=== PATIENT | male | born 2000 | race Two or more races ===

== ENCOUNTER 2024-05-21 10:44 | Inpatient (IN) | payer MEDICAID, OTHER ==
[~2024-05-21] VITALS: Ht 165.1 cm; Wt 82.0 kg
--- NOTE | 2024-05-21 11:03 | ED.PDOC ---
History of Present Illness HPI Comments 24-year-old male who comes in with chief complaint of a syncopal episode x2 today and one yesterday. According to the family, the patient was at his girlfriend's house yesterday and had a syncopal episode yesterday. The patient denies any vomiting but is having some nausea right now. The family states that the patient had another syncopal episode today at home and when he went to the urgent care he had another syncopal episode at the urgent care. When the paramedics arrived, the patient had a temperature of a 103. The patient had a similar episode approximately one year ago according to the family. There was no seizure activity noted. EN route, the patient had an Accu-Chek of 147 and was sinus tach at 113. He is complaining of the nausea and the sore throat as Chief Complaint: Syncope Time Seen by MD: 10:52 Reviewed Notes: Nurses Notes, Advanced Clinical Specialist Notes, Medications, Allergies (No allergies to medications) Allergies: Coded Allergies: NO KNOWN ALLERGIES (Unverified , 05/21/24) Information Source: Patient, Relative (Mother), Emergency Med Personnel Mode of Arrival: EMS Severity: Moderate Timing: Days Duration: Intermittent Prehospital treatment: Accucheck (147), Legal Executive, IVF, Other (Normal saline bolus) Associated signs and symptoms No associated vomiting or diarrhea Past Medical History PAST MEDICAL HISTORY: Denies Surgical History: Denies all surgeries Family History Family History: No family hx of Cancer, No family hx of DM, No family hx of Heart marian Social History Smoker: Non-Smoker Alcohol: Denies ETOH Use Drugs: Denies Drug Use Lives In: Home Constitutional: denies: chills, diaphoresis, fatigue, fever, malaise, sweats, weakness, others EENTM: denies: blurred vision, double vision, ear bleeding, ear discharge, ear drainage, ear pain, ear ringing, eye pain, eye redness, hearing loss, mouth pain, mouth swelling, nasal discharge, nose bleeding, nose congestion, nose pain, photophobia, tearing, throat pain, throat swelling, voice changes, others Respiratory: denies: cough, hemoptysis, orthopnea, SOB at rest, shortness of breath, SOB with excertion, stridor, wheezing, others Cardiovascular: reports: syncope; denies: chest pain, dizzy spells, diaphoresis, Dyspnea on exertion, edema, irregular heart beat, left arm pain, lightheadedness, palpitations, PND, others Gastrointestinal: reports: nausea; denies: abdomen distended, abdominal pain, blood streaked bowels, constipated, diarrhea, dysphagia, difficulty swallowing, hematemesis, melena, poor appetite, poor fluid intake, rectal bleeding, rectal pain, vomiting, others Genitourinary: denies: burning, dysuria, flank pain, frequency, hematuria, incontinence, penile discharge, penile sore, pain, testicle pain, testicle swelling, urgency, others Neurological: denies: dizziness, fainting, headache, left sided numbness, left sided weakness, numbness, paresthesia, pre-existing deficit, right sided numbness, right sided weakness, seizure, speech problems, tingling, tremors, weakness, others Musculoskeletal: denies: back pain, gout, joint pain, joint swelling, muscle pain, muscle stiffness, neck pain, others Integumetry: denies: bruises, change in color, change in hair/nails, dryness, laceration, lesions, lumps, rash, wounds, others Allergic/Immunocompromised: denies: Difficulty Healing, Frequent Infections, Hives, Itching, others Hematologic/Lymphatic: denies: anemia, blood clots, easy bleeding, easy bruising, swollen glands, others Endocrine: denies: excessive hunger, excessive sweating, excessive thirst, excessive urination, flushing, intolerance to cold, intolerance to heat, unexplained weight gain, unexplained weight loss, others Psychiatric: denies: anxiety, bipolar disorder, depression, hopeless, panic disorder, schizophrenia, sleepless, suicidal, others Physical Exam General Appearance: Mild Distress HEENT: Normal ENT Inspection, Pharynx Normal, TMs Normal Neck: Full Range of Motion, Non-Tender, Normal, Normal Inspection Respiratory: Chest Non-Tender, Lungs Clear, No Accessory Muscle Use, No Respiratory Distress, Normal Breath Sounds Cardiovascular: No Edema, No JVD, No Murmur, No Gallop, Normal Peripheral Pul ses, Regular Rate/Rhythm Breast Exam: Deferred Gastrointestinal: No Organomegaly, Non Tender, No Pulsatile Mass, Normal Bowel Sounds, Soft Genitalia: Deferred Pelvic: Deferred Rectal: Deferred Extremities: No calf tenderness, Normal capillary refill, Normal inspection, Normal range of motion, Non-tender, No pedal edema Musculoskeletal : Apperance: Normal Neurologic: Alert, health care technician II-XII nml as Tested, No Motor Deficits, Normal Affect, Normal Mood, No Sensory Deficits Cerebellar Function: Normal Reflexes: Normal Skin: Dry, Normal Color, Warm Lymphatic: No Adenopathy Was a procedure done? Was a procedure done?: No EKG EKG : Pulse Rate (adult): 107 [place]: Normal Cardiac Rhythm: ST ST: Nonsp Differential Dx Considerations may include: Syncope, generalized weakness, electrolyte imbalance, UTI X-Ray, Labs, Meds, VS Vital Signs Date Time Temp Pulse Resp B/P (MAP) Pulse Ox O2 Delivery O2 Flow Rate FiO2 05/21/24 14:00 100.6 119 20 129/78 (95) 98 100.6 05/21/24 13:21 101 18 99 Room Air* 0 21 05/21/24 11:58 99.1 101 25 117/69 (85) 99 99.1 05/21/24 11:07 107 05/21/24 10:50 107 05/21/24 10:44 101.6 98 16 100/61 (74) 100 Lab Test 05/21/24 14:21 05/21/24 13:24 05/21/24 11:21 Range/Units Troponin I High Sensitivity Pending 4 3 L </=54 ng/L White Blood Count 8.8 4.4-10.8 10^3/uL Red Blood Count 5.17 4.5-5.90 10^6/uL Hemoglobin 15.5 13.5-17.5 g/dL Hematocrit 45.0 41.0-53.0 % Mean Corpuscular Volume 87.2 80.0-100.0 fL Mean Corpuscular Hemoglobin 30.1 28.0-32.0 pg Mean Corpuscular Hemoglobin Concent 34.5 32.0-36.0 g/dL Red Cell Distribution Width 13.9 11.8-14.3 % Platelet Count 136 L 140-450 10^3/uL Mean Platelet Volume 8.8 6.9-10.8 fL Neutrophils (%) (Auto) 84.3 H 37.0-80.0 % Lymphocytes (%) (Auto) 5.5 L 10.0-50.0 % Monocytes (%) (Auto) 10.1 0.0-12.0 % Eosinophils (%) (Auto) 0.0 0.0-7.0 % Basophils (%) (Auto) 0.1 0.0-2.0 % Neutrophils # (Auto) 7.5 1.6-8.6 10 ^3/uL Lymphocytes # (Auto) 0.5 0.4-5.4 10 ^3/uL Monocytes # (Auto) 0.9 0-1.3 10 ^3/uL Eosinophils # (Auto) 0 0-0.8 10 ^3/uL Basophils # (Auto) 0 0-0.2 10 ^3/uL Nucleated Red Blood Cells 0.0 % Sodium Level 140 136-145 mmol/L Potassium Level 3.2 L 3.5-5.1 mmol/L Chloride Level 105 98-107 mmol/L Carbon Dioxide Level 25 20-31 mmol/L Anion Gap 10 5-15 Blood Urea Nitrogen 8 L 9-23 mg/dL Creatinine 1.03 0.700-1.30 mg/dL Glomerular Filtration Rate Calc 105 >90 mL/min BUN/Creatinine Ratio 7.8 L 10.0-20.0 Serum Glucose 116 H 74-106 mg/dL Calcium Level 9.8 8.7-10.4 mg/dL Current Medications Medications (Trade) Dose Ordered Sig/Chucky Route Start Time Stop Time Status Last Admin Sodium Chloride 500 ml @ 500 mls/hr Q1H ONCE IV 05/21/24 11:00 05/21/24 11:59 DC 05/21/24 11:52 PROCEDURE(s): HWOCT - HEAD WITHOUT CONTRAST IMPRESSION: 1. No evidence of acute intracranial abnormality. The urine test is pending The CBC is within normal limits The chemistry panel shows hypokalemia at 3.2 At this time, an IV Hep-Lock was established and the patient was given normal saline at 500 cc bolus The patient was being given potassium. The patient was being admitted to the hospitalist We feel that the patient it was a Cardiology as well as Neurology consult We have discussed the findings with the patient's mother and father as well as the patient and they are in agreement with the management Images Reviewed?: Images reviewed and evaluated by me Time of 1ST Reevaluation: 11:03 Reevaluation 1ST: Unchanged Patient Education/Counseling: Diagnosis, Treatment, Prognosis Family Education/Counseling: Diagnosis, Treatment, Prognosis Departure 1 Departure Time of Disposition: 14:55 Impression: Primary Impression: Episode of syncope Qualified Codes: R55 - Syncope and collapse Additional Impression: Hypokalemia Disposition: 09 ADMITTED INPATIENT Admit to: Tele Condition: Fair Critical Care Note Critical Care Time?: Yes (35 min-critical care time only) Stability Stability form required: Yes Unstable for transfer: Telemetry monitoring (Telemetry monitoring required), ED Physician Assesment (Clinical assesment) Heart Score Heart Score: Heart Score Response (Comments) Value History N/A 0 EKG N/A 0 Age N/A 0 Risk Factors N/A 0 Troponin N/A 0 Total 0 I personally scribed for XIN LARSON MD ([email or web address]) on 05/21/24 at 12:47. Electronically submitted by Win Almonte ([email or web address]). XIN LARSON MD May 21, 2024 11:03
[2024-05-21] MEDS: SODIUM CHLORIDE 0.9% 500 ML IV ONE (11:52)
--- NOTE | 2024-05-21 11:53 | DVH ---
EXAM: CT HEAD WITHOUT CONTRAST INDICATION: syncope TECHNIQUE: CT of the head without intravenous contrast. Coronal and sagittal reformatted images are submitted. Radiation Dose : 1. Head: CT Dose: CTDI volume is 65.11 mGy. Dose-length product is 1150.96 mGy*cm The dose indicators for CT are the volume Computed Tomography (CT) Dose Index (CTDIvol) and the Dose Length Product (DLP), and are measured in units of mGy and mGy-cm, respectively. These indicators are not patient dose, but values generated from the CT scanner acquisition factors. The report includes radiation exposure data for exposures received during this examination. All CT scans at this medical facility are performed using dose modulation techniques as appropriate to a performed exam including the following: Automated exposure control was utilized; adjustment of the MA and/or KV according to patient size; and use of iterative reconstruction technique. COMPARISON: None FINDINGS: There is no evidence of acute intracranial hemorrhage, extra-axial collection, mass effect, midline s hift, herniation or hydrocephalus. The ventricles, sulci and cisterns are age appropriate. The stringer-white differentiation is intact. The mastoid air cells are clear. Opacification of the bilateral ethmoid air cells. No depressed calvarial fracture. The surrounding soft tissues are unremarkable. IMPRESSION: 1. No evidence of acute intracranial abnormality.
[2024-05-21 12:18] LABS: Basophils # (auto) 0 10 ^3/uL (0-0.2); Basophils % (auto) 0.1 % (0.0-2.0); Eosinophils # (auto) 0 10 ^3/uL (0-0.8); Hemoglobin 15.5 g/dL (13.5-17.5); Lymphocytes # (auto) 0.5 10 ^3/uL (0.4-5.4); Lymphocytes % (auto) 5.5 % (10.0-50.0); Mean Corpuscular Hemoglobin 30.1 pg (28.0-32.0); Mean Corpuscular Hgb Conc. 34.5 g/dL (32.0-36.0); Mean Corpuscular Volume 87.2 fL (80.0-100.0); Monocytes # (auto) 0.9 10 ^3/uL (0-1.3); Monocytes % (auto) 10.1 % (0.0-12.0); Neutrophils # (auto) 7.5 10 ^3/uL (1.6-8.6); Neutrophils % (auto) 84.3 % (37.0-80.0); Platelet Count (auto) 136 10^3/uL (140-450); Red Blood Cells 5.17 10^6/uL (4.5-5.90); Red Cell Distribution Width 13.9 % (11.8-14.3); White Blood Cell 8.8 10^3/uL (4.4-10.8)
[2024-05-21 12:28] LABS: Chloride 105 mmol/L (98-107); Sodium 140 mmol/L (136-145)
[2024-05-21 12:29] LABS: Anion Gap 10 (5-15); Calcium 9.8 mg/dL (8.7-10.4); Carbon Dioxide 25 mmol/L (20-31)
[2024-05-21 12:34] LABS: BUN/Creatinine Ratio 7.8 (10.0-20.0)
[2024-05-21 12:37] LABS: Blood Urea Nitrogen 8 mg/dL (9-23); Glucose 116 mg/dL (74-106); Potassium 3.2 mmol/L (3.5-5.1)
[2024-05-21 13:21] VITALS: PULSE 101; RESP 18; O2SAT 99
[2024-05-21] MEDS: POTASSIUM CHL 20 Meq TABLET PO ONE (15:04)
[2024-05-21] MEDS: ACETAMINOPHEN 325 MG TAB PO ONE (16:07)
[2024-05-21] MEDS ORDERED: ONDANSETRON HCL 4 MG/2 ML VIAL IV PRN (17:00)
[2024-05-21] MEDS ORDERED: MORPHINE SULFATE INJ 2 MG/ml SYRG IV PRN ×2 (17:00)
[2024-05-21] MEDS ORDERED: DOCUSATE SOD 100 MG CAP PO PRN (17:00)
[2024-05-21] MEDS ORDERED: NITROGLYCERIN 0.4 MG SL TAB SL PRN (17:00)
[2024-05-21] MEDS: SODIUM CHLORIDE 0.9% 1,000 ML IV SCH (17:00)
[2024-05-21] MEDS ORDERED: HYDROcodone-ACET 5/325MG TAB PO PRN (17:00)
[2024-05-21 18:11] LABS: Opiate Scree,Urine Neg (NEGATIVE); Phencyclidine Screen, Urine Neg (NEGATIVE)
[2024-05-21] MEDS ORDERED: VANCOMYCIN PER PHARMACY 0 MG IV SCH (18:15)
[2024-05-21] MEDS ORDERED: AZITHROMYCIN 500MG/ 250ML 250 ML IV SCH (18:15)
--- NOTE | 2024-05-21 18:18 | DVHHP2 ---
History of Present Illness Reason for Visit: Passing out spell and febrile episode up to 103 for last few days History of Present Illness 24-year-old male with a no significant past medical history initially admitted to the hospital with flu-like symptoms including cough febrile episodes. Patient also complaining of multiple syncope episodes. Denies any chest pain denies any seizure-like activities. Denies any previous episode of similar kind. I did order influenza a and B as well as COVID-19. Patient does admit to have recent sick contacts but there is no chest x-ray yet. Past Medical History Nonsignificant. Past Surgical History: None ALCOHOL: none Drugs: None Review of Systems Review of Systems Review of system are negative besides mentioned above Allergies: Coded Allergies: NO KNOWN ALLERGIES (Unverified , 05/21/24) Medications Current Medications Medications Dose Ordered Sig/Chucky Route Start Time Stop Time Status Last Admin Dose Admin Sodium Chloride 1,000 ml @ 60 mls/hr [id number] IV 05/21/24 17:00 05/21/24 17:00 60 MLS/HR Acetaminophen/ Hydrocodone Bitart 1 tab Q4HP PRN PO 05/21/24 17:00 Ondansetron HCl 4 mg Q4HP PRN IV 05/21/24 17:00 Docusate Sodium 100 mg BIDPRN PRN PO 05/21/24 17:00 Enoxaparin Sodium 40 mg DAILY SC 05/22/24 10:00 Acetaminophen 650 mg Q6HP PRN PO 05/21/24 17:00 Morphine Sulfate 2 mg Q4HPRN PRN IV 05/21/24 17:00 Nitroglycerin 0.4 mg Q5MINP PRN SL 05/21/24 17:00 Morphine Sulfate 2 mg Q30M PRN IV 05/21/24 17:00 Vancomycin HCl 0 ml @ 0 mls/hr UD IV 05/21/24 18:15 UNV Ceftriaxone Sodium 50 ml @ 100 mls/hr DAILY@09 IV 05/21/24 18:15 UNV Azithromycin 250 ml @ 125 mls/hr DAILY IV 05/21/24 18:15 UNV Exam Vital Signs Vital Signs Date Time Temp Pulse Resp B/P (MAP) Pulse Ox O2 Delivery O2 Flow Rate FiO2 05/21/24 17:16 100.3 05/21/24 16:00 118 25 108/70 (83) 98 05/21/24 13:21 Room Air* 0 21 Exam HEENT pupils are reactive Neck is supple CV is S1-S2 regular rate and rhythm Respiratory diminished breath sounds bases GI positive bowel sound Extremity no edema BRICK [place]URNER HEAD no motor deficit Labs/Xrays Labs Test 05/21/24 17:43 05/21/24 14:21 05/21/24 11:21 Range/Units Troponin I High Sensitivity 4 </=54 ng/L White Blood Count 8.8 4.4-10.8 10^3/uL Red Blood Count 5.17 4.5-5.90 10^6/uL Hemoglobin 15.5 13.5-17.5 g/dL Hematocrit 45.0 41.0-53.0 % Mean Corpuscular Volume 87.2 80.0-100.0 fL Mean Corpuscular Hemoglobin 30.1 28.0-32.0 pg Mean Corpuscular Hemoglobin Concent 34.5 32.0-36.0 g/dL Red Cell Distribution Width 13.9 11.8-14.3 % Platelet Count 136 L 140-450 10^3/uL Mean Platelet Volume 8.8 6.9-10.8 fL Neutrophils (%) (Auto) 84.3 H 37.0-80.0 % Lymphocytes (%) (Auto) 5.5 L 10.0-50.0 % Monocytes (%) (Auto) 10.1 0.0-12.0 % Eosinophils (%) (Auto) 0.0 0.0-7.0 % Basophils (%) (Auto) 0.1 0.0-2.0 % Neutrophils # (Auto) 7.5 1.6-8.6 10 ^3/uL Lymphocytes # (Auto) 0.5 0.4-5.4 10 ^3/uL Monocytes # (Auto) 0.9 0-1.3 10 ^3/uL Eosinophils # (Auto) 0 0-0.8 10 ^3/uL Basophils # (Auto) 0 0-0.2 10 ^3/uL Nucleated Red Blood Cells 0.0 % Sodium Level 140 136-145 mmol/L Potassium Level 3.2 L 3.5-5.1 mmol/L Chloride Level 105 98-107 mmol/L Carbon Dioxide Level 25 20-31 mmol/L Anion Gap 10 5-15 Blood Urea Nitrogen 8 L 9-23 mg/dL Creatinine 1.03 0.700-1.30 mg/dL Glomerular Filtration Rate Calc 105 >90 mL/min BUN/Creatinine Ratio 7.8 L 10.0-20.0 Serum Glucose 116 H 74-106 mg/dL Calcium Level 9.8 8.7-10.4 mg/dL Assessment/Plan Assessment/Plan 24-year-old male with a no significant past medical history initially admitted to the hospital with a flu-like symptoms found to have 1. Flu-like symptoms rule out influenza, viral pneumonia, pneumonia 2. Recurrent syncope episodes. 3. Febrile episodes rule out bacteremia or any infection -admitted to telemetry, order COVID-19, ordered influenza a and B, chest x-ray-draw two sets of blood cultures, broad-spectrum IV antibiotics after all those tests are done, Infectious Disease consultation. -check orthostatic vitals Plan discussed with: Patient My Orders Orders - NITISH COLE MD Procedure Category Date Status Time Admit ADMIT 05/21/24 Transmitted 16:57 Code Status CODE 05/21/24 Transmitted 16:57 2 Gm Sodium Diet DIET 05/21/24 Transmitted Dinner Sodium Chloride 0.9% PHA 05/21/24 In Process 17:00 Hydrocodone-Acet PHA 05/21/24 In Process 5/325mg Tab ([place] 17:00 Ondansetron Hcl PHA 05/21/24 In Process (Zofran) 17:00 Docusate Sodium PHA 05/21/24 In Process Capsule (Colace 17:00 Enoxaparin Sodium PHA 05/22/24 In Process (Lovenox) 10:00 Condition: Fair JUDY 05/21/24 In Process 16:57 Acetaminophen Tablet PHA 05/21/24 In Process (Tylenol Tablet) 17:00 Morphine Sulfate PHA 05/21/24 In Process Injection 17:00 Nitroglycerin PHA 05/21/24 In Process Sublingual (Ntrostat 17:00 Morphine Sulfate PHA 05/21/24 In Process Injection 17:00 Stat Ekg For Chest JUDY 05/21/24 In Process Pain 16:57 Notify Of Changes JUDY 05/21/24 In Process From Base 16:57 Cocoa Room Operator For JUDY 05/21/24 In Process 24 Hours 16:57 Emergency Dysrhythmia JUDY 05/21/24 In Process Protocol 16:57 Rhythm Strips Once JUDY 05/21/24 In Process Every Shift 16:57 Oxygen By Nasal RT 05/21/24 Transmitted Cannula 16:57 * Cardiology Consult CONS 05/21/24 Transmitted 16:57 Echo 2d Mode Cardiac US 05/21/24 Logged DOP 16:57 Orthostatic Vital ORDERS 05/21/24 Transmitted Signs 16:57 Rapid Influenza A&B LAB 05/21/24 Logged 18:10 Covid19 Antigen [place] LAB 05/21/24 Logged Blood Culture JOSR 05/21/24 Logged 18:10 Vancomycin Per PHA 05/21/24 Logged Pharmacy 18:15 Ceftriaxone 1gm/50ml PHA 05/21/24 Logged D5w (Rocephin) 18:15 Azithromycin 500mg/ PHA 05/21/24 Logged 250ml (Zithromax 50 18:15 Date of Service: May 21, 2024 Billing Provider: NITISH COLE MD Common Visit Codes: NOT BILLABLE NITISH COLE MD May 21, 2024 18:18
[2024-05-21] MEDS: cefTRIAXone 1GM/50ML D5W 50 ML IV SCH (18:24)
[2024-05-21 18:50] LABS: Amphetamine Screen, Urine Neg (NEGATIVE); Barbiturate Scree,Urine Neg (NEGATIVE); Benzodiazephine Screen, Urine Neg (NEGATIVE); Cannabinoid Screen, Urine Neg (NEGATIVE); Cocaine Screen, Urine Neg (NEGATIVE)
--- NOTE | 2024-05-21 19:00 | ECG ---
[facility] Test Date: 2024-05-21 Test Time: 10:49:31 Pat Name: TEODORO ENRIQUE Department: ED Room: 0276T Gender: M Nonfarm Animal Caretaker: DAVIS : 2000 Requested By: XIN LARSON Order Number: [id number] Reading MD: Cody Barrow Measurements Intervals [place] Rate: 107 P: 63 AK: 138 QRS: 53 QRSD: 96 T: 31 QT: 329 QTc: 439 Interpretive Statements Sinus tachycardia RSR' in V1 or V2, probably normal variant Borderline T wave abnormalities Electronically Signed On 05-22-2024 9:22:52 PST by Cody Barrow Please click the below link to view image of tracing.
[2024-05-21] MEDS: VANCOMYCIN 1.5GM/300ML 300 ML IV ONE (19:02)
[2024-05-21] MEDS: AZITHROMYCIN 250 MG TAB PO SCH (19:24)
[2024-05-21 21:38] LABS: COVID19 ANTIGEN SOFIA FIA NEGATIVE (NEGATIVE)
[2024-05-21 21:44] LABS: Rapid Influenza B Negative (Negative)
[2024-05-21 21:49] LABS: Rapid Influenza A Positive (Negative)
[2024-05-21] MEDS: ACETAMINOPHEN 325 MG TAB PO PRN (22:29)
[2024-05-21 23:00] VITALS: BP_SYST 122; BP_SYST 126; BP_SYST 133; BP_DIAS 47; BP_DIAS 49; BP_DIAS 56; PULSE 113; PULSE 120; PULSE 134; RESP 17; TEMP 100.3; O2SAT 95; O2SAT 96
[2024-05-21 23:22] VITALS: BP 133/49; PULSE 120; RESP 18; TEMP 100.3; O2SAT 96
[2024-05-22] VITALS (11 sets, daily range): BP systolic 0–132; BP diastolic 49–69; PULSE 73–112; RESP 16–22; TEMP 98.1–102.7; O2SAT 96–99
[2024-05-22] MEDS: VANCOMYCIN 1GM/250ML KIT 250 ML IV SCH (01:17)
[2024-05-22 09:20] LABS: Calcium 9.8 mg/dL (8.7-10.4)
[2024-05-22 09:22] LABS: Chloride 104 mmol/L (98-107); Sodium 139 mmol/L (136-145)
[2024-05-22 09:25] LABS: BUN/Creatinine Ratio 6.7 (10.0-20.0); Glucose 96 mg/dL (74-106)
[2024-05-22 09:26] LABS: Blood Urea Nitrogen 6 mg/dL (9-23); Potassium 3.4 mmol/L (3.5-5.1)
[2024-05-22] MEDS: ENOXAPARIN SOD 40 MG/0.4 ML SYRINGE SC SCH (09:33)
--- NOTE | 2024-05-22 09:45 | DVH ---
CHEST RADIOGRAPH Indication: FEVER, COUGH, AND PHLEGM Technique: Frontal and lateral view of the chest was obtained Comparison: None FINDINGS: Lines and Tubes: None Lungs: Clear Pleura: No effusion. No pneumothorax. Cardiomediastinal contours: Unremarkable Bones: Unremarkable IMPRESSION: No evidence of acute disease.
[2024-05-22 10:47] LABS: Anion Gap 9 (5-15); Carbon Dioxide 26 mmol/L (20-31)
--- NOTE | 2024-05-22 15:46 | DVHSR ---
APPROVED REPORT EXAM: Two-dimensional and M-mode echocardiogram with Doppler and color Doppler. Blood Pressure: 118/69 mmHg INDICATION Syncope RISK FACTORS Height: 5'5", Weight: 150 DIMENSIONS LVDd5.2 (3.8-5.7cm)LA (2D)3.7 (1.9-4.0cm)Aortic Root3.2 (2.0-3.7cm) LVDs3.6 (2.5-4.0cm)LA (MM) (1.9-4.0cm)Aortic Cusp Exc2.0 (1.5-2.0cm) EF (%) 59.0 (55-70%)Rt. Atrium4.3 (1.9-4.0cm)Asc. Aorta2.6 cm IVSd0.8 (0.7-1.1cm)RV (D)4.1 (1.8-2.4cm) PWd0.8 (0.7-1.1cm) Mitral Valve MitralMitral Stenosis E wave0.88m/sMV Mean GR.mmHg E/A ratio0.02D MVAcm2 Aortic Valve Aortic ValveAortic Stenosis V11.35m/Gilbert Mean GR.4mmHg V21.34m/[place] Peak GR.7mmHg LVOT Diameter2.2 (1.8-2.4cm)Doppler AVA3.83cm2 Pulmonic Valve V21.01m/s LEFT VENTRICLE The left ventricular is of normal size and systolic function. Left ventricular wall thickness was no rmal. Ejection fraction is normal and then this estimate is 59%. There is no gross wall motion abno rmalities. There is no diastolic dysfunction. RIGHT VENTRICLE Normal left ventricular size and systolic function. ATRIA Both atria are of normal size. MITRAL VALVE The mitral valve is normal structure and function. PULMONIC VALVE Normal. TRICUSPID VALVE Normal structure and function. AORTIC VALVE The aortic valve is trileaflet in morphology. The volume is of normal structure and function. GREAT VESSELS The aortic root and proximal ascending aorta are of normal size. PERICARDIAL EFFUSION No pericardial effusion. Conclusion Normal biventricular size and systolic function. No evidence of diastolic dysfunction. No hemodynamically significant valvular disease. No pericardial effusion. PA systolic pressure isn't adequately estimated. No prior study for comparison.
--- NOTE | 2024-05-22 15:46 | DVHPN2 ---
Subjective PATIENT HAS STATED THAT HIS FLU-LIKE SYMPTOMS ARE MUCH BETTER. DENIES ANY LIGHTHEADEDNESS DIZZINESS. ORTHOSTATIC VITALS ARE NEGATIVE. 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 Medications Current Medications Medications Dose Ordered Sig/Chucky Route Start Time Stop Time Status Last Admin Dose Admin Sodium Chloride 1,000 ml @ 60 mls/hr [id number] IV 05/21/24 17:00 05/21/24 17:00 60 MLS/HR Acetaminophen/ Hydrocodone Bitart 1 tab Q4HP PRN PO 05/21/24 17:00 Ondansetron HCl 4 mg Q4HP PRN IV 05/21/24 17:00 Docusate Sodium 100 mg BIDPRN PRN PO 05/21/24 17:00 Enoxaparin Sodium 40 mg DAILY SC 05/22/24 10:00 05/22/24 09:33 40 MG Acetaminophen 650 mg Q6HP PRN PO 05/21/24 17:00 05/22/24 05:13 650 MG Morphine Sulfate 2 mg Q4HPRN PRN IV 05/21/24 17:00 Nitroglycerin 0.4 mg Q5MINP PRN SL 05/21/24 17:00 Morphine Sulfate 2 mg Q30M PRN IV 05/21/24 17:00 Vancomycin HCl 0 ml @ 0 mls/hr UD IV 05/21/24 18:15 Ceftriaxone Sodium 50 ml @ 100 mls/hr DAILY@09 IV 05/21/24 18:15 05/22/24 09:35 100 MLS/HR Azithromycin 250 ml @ 125 mls/hr DAILY IV 05/21/24 18:15 Cancel Azithromycin 500 mg DAILY PO 05/21/24 19:01 05/22/24 09:33 500 MG Vancomycin HCl 250 ml @ 250 mls/hr Q8H IV 05/22/24 02:00 05/22/24 12:11 250 MLS/HR Oseltamivir Phosphate 75 mg Q12HR PO 05/22/24 22:00 05/27/24 21:59 Laboratory Results Laboratory Tests 05/21/24 11:21 05/22/24 08:30 Chemistry Test 05/22/24 08:30 Calcium Level 9.8 mg/dL (8.7-10.4) Assessment/Plan Assessment/Plan 24-year-old male with a no significant past medical history initially admitted to the hospital with a flu-like symptoms found to have 1. Flu-like symptoms , COVID-19 RULED OUT INFLUENZA A IS POSITIVE 2. Recurrent syncope episodes , ORTHOSTATIC VITALS ARE NEGATIVE 3. Febrile episodes rule out bacteremia or any infection -START TAMIFLU , chest x-ray-draw two sets of blood cultures, broad-spectrum IV antibiotics after all those tests are done, Infectious Disease consultation. -check orthostatic vitals Plan discussed with: Patient, Other My Orders Orders - NITISH COLE MD Procedure Category Date Status Time Admit ADMIT 05/21/24 Transmitted 16:57 Code Status CODE 05/21/24 Transmitted 16:57 2 Gm Sodium Diet DIET 05/21/24 Transmitted Dinner Sodium Chloride 0.9% PHA 05/21/24 In Process 17:00 Hydrocodone-Acet PHA 05/21/24 In Process 5/325mg Tab ([place] 17:00 Ondansetron Hcl PHA 05/21/24 In Process (Zofran) 17:00 Docusate Sodium PHA 05/21/24 In Process Capsule (Colace 17:00 Enoxaparin Sodium PHA 05/22/24 In Process (Lovenox) 10:00 Condition: Fair JUDY 05/21/24 In Process 16:57 Acetaminophen Tablet PHA 05/21/24 In Process (Tylenol Tablet) 17:00 Morphine Sulfate PHA 05/21/24 In Process Injection 17:00 Nitroglycerin PHA 05/21/24 In Process Sublingual (Ntrostat 17:00 Morphine Sulfate PHA 05/21/24 In Process Injection 17:00 Stat Ekg For Chest JUDY 05/21/24 In Process Pain 16:57 Notify Of Changes JUDY 05/21/24 In Process From Base 16:57 Tour Director For JUDY 05/21/24 In Process 24 Hours 16:57 Emergency Dysrhythmia JUDY 05/21/24 In Process Protocol 16:57 Rhythm Strips Once JUDY 05/21/24 In Process Every Shift 16:57 Oxygen By Nasal RT 05/21/24 Transmitted Cannula 16:57 * Cardiology Consult CONS 05/21/24 Transmitted 16:57 Orthostatic Vital ORDERS 05/21/24 Transmitted Signs 16:57 Blood Culture JOSR 05/21/24 In Process 18:10 Vancomycin Per PHA 05/21/24 In Process Pharmacy 18:15 Ceftriaxone 1gm/50ml PHA 05/21/24 In Process D5w (Rocephin) 18:15 * Infectious [place]- CONS 05/21/24 Transmitted [place] 18:14 Azithromycin Tablet PHA 05/21/24 In Process (Zithromax Tablet) 19:01 Vancomycin,[place] LAB 05/22/24 Logged 17:00 Vancomycin Per JUDY 05/21/24 In Process Pharmacy Protoc 21:46 Vancomycin 1gm/250ml PHA 05/22/24 In Process Kit 02:00 * Dietary Consult CONS 05/22/24 Transmitted 00:13 Chest Two Views XY 05/22/24 Resulted Routine 08:08 Oseltamivir 75mg PHA 05/22/24 In Process Capsule (Tamiflu 75mg 22:00 Date of Service: May 22, 2024 Billing Provider: NITISH COLE MD Common Visit Codes: NOT BILLABLE NITISH COLE MD May 22, 2024 15:46
--- NOTE | 2024-05-22 19:58 | DVHINCON2 ---
Date of service: May 22, 2024 Referring Physician farrah Weston MD Reason for Consultation Influenza History of Present Illness This is a 24-year-old male with a no significant past medical history initially admitted to the hospital with flu-like symptoms including cough febrile episodes. Patient also complaining of multiple syncope episodes. Denies any previous episode of similar kind. Patient does admit to have recent sick contacts but there is no chest x-ray yet. Past Medical History None Past Surgical History None Family History None Social History None Allergies: Coded Allergies: NO KNOWN ALLERGIES (Unverified , 05/21/24) Home Meds No Active Prescriptions or Reported Meds Current Medications Current Medications Medications (Trade) Dose Ordered Sig/Chucky Route PRN Reason Start Time Stop Time Status Last Admin Enoxaparin Sodium (Lovenox) 40 mg DAILY SC 05/22/24 10:00 05/22/24 09:33 Vancomycin HCl 250 ml @ 250 mls/hr Q8H IV 05/22/24 02:00 05/22/24 18:14 DC 05/22/24 18:02 Oseltamivir Phosphate (Tamiflu 75MG Capsule) 75 mg Q12HR PO 05/22/24 22:00 05/27/24 21:59 Vancomycin HCl 250 ml @ 200 mls/hr Q8H IV 05/23/24 00:00 Review of Systems General: Fever HEENT: No Sinus pain, headache, vision changes or sore throat Respiratory: Cough Cardiovascular: No Chest pain, palpitations or leg edema Gastrointestinal: No Nausea, vomiting, diarrhea, abdominal pain Genitourinary: No Dysuria, urinary frequency, hematuria, pelvic pain Skin: No Rashes, ulcers, abscesses, redness or swelling Musculoskeletal: No Joint pain, muscle pain or swelling Neurologic: No Altered mental status, headaches or focal neurological deficits. Psychiatric: No Anxiety, depression or confusion Vital Signs Vital Signs Date Time Temp Pulse Resp B/P (MAP) Pulse Ox O2 Delivery O2 Flow Rate FiO2 05/22/24 18:01 99.4 05/22/24 17:00 97 16 127/68 (87) 96 118/49 (72) 132/57 (82) 05/22/24 08:10 Room Air* 0 21 Physical Exam HEENT pupils are reactive Neck is supple CV is S1-S2 regular rate and rhythm Respiratory diminished breath sounds bases GI positive bowel sound Extremity no edema ETL ANALYST no motor deficit Labs/Diagnostic Data Labs Test 05/22/24 16:56 05/22/24 08:30 05/21/24 18:30 05/21/24 17:43 Range/Units Vancomycin Level Trough 13.3 H 5-10 ug/mL Sodium Level 139 136-145 mmol/L Potassium Level 3.4 L 3.5-5.1 mmol/L Chloride Level 104 98-107 mmol/L Carbon Dioxide Level 26 20-31 mmol/L Anion Gap 9 5-15 Blood Urea Nitrogen 6 L 9-23 mg/dL Creatinine 0.89 0.700-1.30 mg/dL Glomerular Filtration Rate Calc 124 >90 mL/min BUN/Creatinine Ratio 6.7 L 10.0-20.0 Serum Glucose 96 74-106 mg/dL Calcium Level 9.8 8.7-10.4 mg/dL Influenza Type A Antigen Positive Negative Influenza Type B Antigen Negative Negative SARS-CoV-2 Antigen (Rapid) Negative NEGATIVE Urine Opiates Screen Neg NEGATIVE Urine Fentanyl Screen Neg NEGATIVE Urine Barbiturates Screen Neg NEGATIVE Urine Phencyclidine Screen Neg NEGATIVE Urine Amphetamines Screen Neg NEGATIVE Urine Benzodiazepines Screen Neg NEGATIVE Urine Cocaine Screen Neg NEGATIVE Urine Cannabinoids Screen Neg NEGATIVE Test 05/21/24 14:21 05/21/24 11:21 Range/Units Troponin I High Sensitivity 4 </=54 ng/L White Blood Count 8.8 4.4-10.8 10^3/uL Red Blood Count 5.17 4.5-5.90 10^6/uL Hemoglobin 15.5 13.5-17.5 g/dL Hematocrit 45.0 41.0-53.0 % Mean Corpuscular Volume 87.2 80.0-100.0 fL Mean Corpuscular Hemoglobin 30.1 28.0-32.0 pg Mean Corpuscular Hemoglobin Concent 34.5 32.0-36.0 g/dL Red Cell Distribution Width 13.9 11.8-14.3 % Platelet Count 136 L 140-450 10^3/uL Mean Platelet Volume 8.8 6.9-10.8 fL Neutrophils (%) (Auto) 84.3 H 37.0-80.0 % Lymphocytes (%) (Auto) 5.5 L 10.0-50.0 % Monocytes (%) (Auto) 10.1 0.0-12.0 % Eosinophils (%) (Auto) 0.0 0.0-7.0 % Basophils (%) (Auto) 0.1 0.0-2.0 % Neutrophils # (Auto) 7.5 1.6-8.6 10 ^3/uL Lymphocytes # (Auto) 0.5 0.4-5.4 10 ^3/uL Monocytes # (Auto) 0.9 0-1.3 10 ^3/uL Eosinophils # (Auto) 0 0-0.8 10 ^3/uL Basophils # (Auto) 0 0-0.2 10 ^3/uL Nucleated Red Blood Cells 0.0 % Microbiology Date/Time Source Procedure Growth Status 05/21/24 19:00 Blood Blood Culture - Preliminary NO GROWTH AFTER 24 HOURS OF INCUBATION. Resulted Assessment Assessment 24-year-old male with a no significant past medical history initially admitted to the hospital with a flu-like symptoms found to have 1. Flu-like symptoms 2. Recurrent syncope episodes. Recommendations 05/22 chest x-ray : evidence of no acute disease 05/21 : blood cultures : no growth of bacteria 05/21 : influenza A positive Covid : negative Stop Vancomycin , ceftriaxone Continue oseltamivir 75 mg BID for 5 days Gentle IV hydration recommend for tylenol Thank you for the consultation. Plan discussed with: JOSÉ Hunt MD May 22, 2024 19:58
[2024-05-22] MEDS: OSELTAMIVIR 75 MG CAP PO SCH (22:00)
--- NOTE | 2024-05-22 22:42 | DVHINCON2 ---
DATE OF CONSULTATION: 05/22/2024 REFERRING PHYSICIAN: Dr. Weston. CONSULTING PHYSICIAN: Dr. Perales. INDICATIONS: Syncope. HISTORY OF PRESENT ILLNESS: The patient is a 24-year-old male with no significant past medical history, was having flu-like symptoms recently over the past few days. The patient had an episode of brief loss of consciousness. At that time, the patient was noted to be hypotensive. The patient now admitted with diagnosis of influenza infection. The patient denies prior history of heart disease. PAST MEDICAL HISTORY: Unremarkable. MEDICATIONS AT HOME: None. PHYSICAL EXAMINATION: GENERAL: Alert and awake, in no form of cardiopulmonary distress. VITAL SIGNS: Blood pressure 119/67, pulse 91 per minute, saturation 99%. HEENT: No carotid bruits. No jugular venous distention. CHEST: Bilateral air entry. CARDIOVASCULAR: Precordial and carotid pulses palpable. Normal S1, S2. Regular rate and rhythm. No appreciable gallops or rubs. EXTREMITIES: No peripheral edema. DIAGNOSTIC DATA: CBC is normal. Sodium 139, potassium 3.4, creatinine 0.8. Troponin negative x3. ASSESSMENT: * Influenza ____. * Syncope, possibly secondary to orthostatic hypotension. * Hypokalemia. RECOMMENDATIONS: * Continue IV hydration. * Continue ____. * Supplement potassium. * We will obtain echo to exclude underlying structural heart disease. * If echo unremarkable, no further cardiac workup indicated. Thank you for allowing me to participate in the care of this patient. MD CARLOS Villalobos/BOGDAN/FLO TID: [id number] RECEIPT: [id number]
[2024-05-23] VITALS (9 sets, daily range): BP systolic 0–126; BP diastolic 38–80; PULSE 74–108; RESP 16–22; TEMP 98–99.4; O2SAT 97–99
[2024-05-23] MEDS ORDERED: VANCOMYCIN 1.25GM/250ML 250 ML IV SCH
[2024-05-23] MEDS ORDERED: TAMIFLU PO (14:31)
[2024-05-23] MEDS: SODIUM CHLORIDE 0.9% 1,000 ML IV SCH (15:43)
--- NOTE | 2024-05-23 17:01 | DVHPN2 ---
Subjective PATIENT HAS STATED THAT HIS FLU-LIKE SYMPTOMS ARE MUCH BETTER. Patient came back positive for orthostatic vital signs. Reviewed: Care Plan Changes from previous H/P or p: Changes (Patient came back positive for orthostatic hypotension.) Objective Vitals Vital Signs Date Time Temp Pulse Resp B/P (MAP) Pulse Ox O2 Delivery O2 Flow Rate FiO2 05/23/24 16:37 98.3 75 17 126/58 (80) 99 98.3 05/23/24 08:20 Room Air* 0 21 Intake/Output Intake and Output 05/23/24 07:00 Intake Total 2135 ml Output Total 300 ml Balance 1835 ml Intake Oral 1585 ml IV Total 550 ml Output Urine Total 300 ml Stool Total 0 ml # Voids 3 Exam HEENT PUPILS ARE REACTIVE NECK IS SUPPLE CV IS S1-S2 REGULAR RATE AND RHYTHM RESPIRATORY ARE CLEAR GI POSITIVE BOWEL SOUND EXTREMITY NO 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 Medications Current Medications Medications Dose Ordered Sig/Chucky Route Start Time Stop Time Status Last Admin Dose Admin Acetaminophen/ Hydrocodone Bitart 1 tab Q4HP PRN PO 05/21/24 17:00 Ondansetron HCl 4 mg Q4HP PRN IV 05/21/24 17:00 Docusate Sodium 100 mg BIDPRN PRN PO 05/21/24 17:00 Enoxaparin Sodium 40 mg DAILY SC 05/22/24 10:00 05/23/24 10:16 40 MG Acetaminophen 650 mg Q6HP PRN PO 05/21/24 17:00 05/23/24 10:30 650 MG Morphine Sulfate 2 mg Q4HPRN PRN IV 05/21/24 17:00 Nitroglycerin 0.4 mg Q5MINP PRN SL 05/21/24 17:00 Morphine Sulfate 2 mg Q30M PRN IV 05/21/24 17:00 Azithromycin 250 ml @ 125 mls/hr DAILY IV 05/21/24 18:15 Cancel Azithromycin 500 mg DAILY PO 05/21/24 19:01 05/23/24 10:25 500 MG Oseltamivir Phosphate 75 mg Q12HR PO 05/22/24 22:00 05/27/24 21:59 05/23/24 10:25 75 MG Midodrine 5 mg BID PO 05/23/24 22:00 Sodium Chloride 1,000 ml @ 150 mls/hr Q6H40M IV 05/23/24 15:15 05/23/24 15:43 150 MLS/HR Laboratory Results Laboratory Tests 05/21/24 11:21 05/22/24 08:30 Microbiology Microbiology Date/Time Source Procedure Growth Status 05/21/24 19:00 Blood Blood Culture - Preliminary NO GROWTH AFTER 24 HOURS OF INCUBATION. Resulted Assessment/Plan Assessment/Plan 24-year-old male with a no significant past medical history initially admitted to the hospital with a flu-like symptoms found to have 1. Flu-like symptoms , COVID-19 RULED OUT INFLUENZA A IS POSITIVE oncology on Tamiflu 2. Recurrent syncope episodes , ORTHOSTATIC VITALS ARE positive 3. Febrile episodes ruled out bacteremia or any infection -continue Tamiflu, blood cultures are negative -patient is orthostatic vital signs are positive, discussed case with Dr. Turner on the phone who recommended to start low-dose of midodrine. IV fluids -sutures service consultation for thigh-high Joshua hose. Patient recommended not to get up without any help and call bedside RN and call light button before he gets up. -patient is family updated regarding current plan of care both mom and dad but at bedside med vital signs were checked and he was orthostatic vital signs positive Nancy of later dizziness but did not pass out. Plan discussed with: Patient, Other (Patient's mom and dad at bedside.) My Orders Orders - NITISH COLE MD Procedure Category Date Status Time Potassium LAB 05/23/24 In Process 14:31 * Cover Machine Operator CONS 05/23/24 Transmitted Consult Basic Metabolic Panel LAB 05/24/24 Verified 06:00 Magnesium LAB 05/24/24 Verified 06:00 Midodrine Tablet PHA 05/23/24 In Process (Proamatine Tablet) 22:00 Orthostatic Vital ORDERS 05/23/24 Transmitted Signs 14:44 Sodium Chloride 0.9% PHA 05/23/24 In Process 15:15 Date of Service: May 23, 2024 Billing Provider: NITISH COLE MD Common Visit Codes: NOT BILLABLE NITISH COLE MD May 23, 2024 17:01
--- NOTE | 2024-05-23 20:18 | DVHPN2 ---
Progress Note - Dictate Date Seen: May 23, 2024 Medical Necessity Reason Pt with a Central, PICC or Fol: No Subjective Patient has stated that his flu-like symptoms are much better. Patient came back positive for orthostatic vital signs. vital signs Vital Sign Date Time Temp Pulse Resp B/P (MAP) Pulse Ox O2 Delivery O2 Flow Rate FiO2 05/23/24 16:37 98.3 75 17 126/58 (80) 99 98.3 05/23/24 08:20 Room Air* 0 21 Total Intake and Output 05/22/24 05/22/24 05/23/24 15:00 23:00 07:00 Intake Total 600 ml 740 ml 795 ml Output Total 0 ml 300 ml Balance 600 ml 740 ml 495 ml medications Current Medications Medications Dose Ordered Sig/Chucky Route Start Time Stop Time Status Last Admin Dose Admin Acetaminophen/ Hydrocodone Bitart 1 tab Q4HP PRN PO 05/21/24 17:00 Ondansetron HCl 4 mg Q4HP PRN IV 05/21/24 17:00 Docusate Sodium 100 mg BIDPRN PRN PO 05/21/24 17:00 Enoxaparin Sodium 40 mg DAILY SC 05/22/24 10:00 05/23/24 10:16 40 MG Acetaminophen 650 mg Q6HP PRN PO 05/21/24 17:00 05/23/24 10:30 650 MG Morphine Sulfate 2 mg Q4HPRN PRN IV 05/21/24 17:00 Nitroglycerin 0.4 mg Q5MINP PRN SL 05/21/24 17:00 Morphine Sulfate 2 mg Q30M PRN IV 05/21/24 17:00 Azithromycin 250 ml @ 125 mls/hr DAILY IV 05/21/24 18:15 Cancel Azithromycin 500 mg DAILY PO 05/21/24 19:01 05/23/24 10:25 500 MG Oseltamivir Phosphate 75 mg Q12HR PO 05/22/24 22:00 05/27/24 21:59 05/23/24 10:25 75 MG Midodrine 5 mg BID PO 05/23/24 22:00 Sodium Chloride 1,000 ml @ 150 mls/hr Q6H40M IV 05/23/24 15:15 05/23/24 15:43 150 MLS/HR objective HEENT pupils are reactive Neck is supple CV is S1-S2 regular rate and rhythm Respiratory diminished breath sounds bases GI positive bowel sound Extremity no edema AUTOMATION QA LEAD no motor deficit laboratory and microbiology Laboratory Tests 05/23/24 16:20 05/22/24 08:30 05/21/24 11:21 Test 05/22/24 08:30 Range/Units Serum Glucose 96 74-106 mg/dL Assessment/Plan Assessment 24-year-old male with a no significant past medical history initially admitted to the hospital with a flu-like symptoms found to have 1. Flu-like symptoms 2. Recurrent syncope episodes. Recommendations 05/21 : influenza A positive Covid : negative Stop Vancomycin , ceftriaxone Continue oseltamivir 75 mg BID for 5 days Gentle IV hydration recommend for tylenol syncopal episode : defer to primary team Thank you for the consultation. Dietary Evaluation Review Comments: Encourage and monitor PO intake to meet 75% of his needs Expected Outcomes/Goals: avoid weight loss. Plan discussed with: Other JOSÉ SIMMONS MD May 23, 2024 20:18
[2024-05-23] MEDS: MIDODRINE HCL 10 MG TAB PO SCH (23:12)
[2024-05-24] VITALS (9 sets, daily range): BP systolic 0–121; BP diastolic 55–70; PULSE 60–93; RESP 16–22; TEMP 98.1–99.7; O2SAT 87–99
[2024-05-24 09:00] LABS: Chloride 106 mmol/L (98-107); Potassium 3.7 mmol/L (3.5-5.1); Sodium 141 mmol/L (136-145)
[2024-05-24 09:02] LABS: Anion Gap 8 (5-15); Calcium 9.6 mg/dL (8.7-10.4); Carbon Dioxide 27 mmol/L (20-31)
[2024-05-24 09:06] LABS: Glucose 82 mg/dL (74-106)
[2024-05-24 09:07] LABS: BUN/Creatinine Ratio 9.5 (10.0-20.0); Magnesium 2.1 mg/dL (1.6-2.6)
[2024-05-24 09:11] LABS: Blood Urea Nitrogen 7 mg/dL (9-23)
--- NOTE | 2024-05-24 16:49 | DVHPN2 ---
Subjective Patient has orthostatic hypotension is better as compared to yesterday as per recent vital signs. Patient's mom has a concern about the diet. Dietary consultation will be requested. Patient stated that he is feeling much better. We will keep the patient one more day. Patient already has thigh-high Joshua hose. Reviewed: Care Plan Changes from previous H/P or p: Changes (Orthostatic vitals are much better as compared to yesterday.) Objective Vitals Vital Signs Date Time Temp Pulse Resp B/P (MAP) Pulse Ox O2 Delivery O2 Flow Rate FiO2 05/24/24 13:00 98.1 60 17 113/67 (82) 99 98.1 114/61 (78) 103/55 (71) 05/24/24 08:25 Room Air* 0 21 Intake/Output Intake and Output 05/24/24 07:00 Intake Total 4782 ml Output Total 1050 ml Balance 3732 ml Intake Oral 3632 ml IV Total 1150 ml Output Urine Total 1050 ml # Voids 2 # Bowel Movements 1 Medications Current Medications Medications Dose Ordered Sig/Chucky Route Start Time Stop Time Status Last Admin Dose Admin Acetaminophen/ Hydrocodone Bitart 1 tab Q4HP PRN PO 05/21/24 17:00 Ondansetron HCl 4 mg Q4HP PRN IV 05/21/24 17:00 Docusate Sodium 100 mg BIDPRN PRN PO 05/21/24 17:00 Enoxaparin Sodium 40 mg DAILY SC 05/22/24 10:00 05/24/24 10:32 40 MG Acetaminophen 650 mg Q6HP PRN PO 05/21/24 17:00 05/24/24 10:49 650 MG Morphine Sulfate 2 mg Q4HPRN PRN IV 05/21/24 17:00 Nitroglycerin 0.4 mg Q5MINP PRN SL 05/21/24 17:00 Morphine Sulfate 2 mg Q30M PRN IV 05/21/24 17:00 Azithromycin 250 ml @ 125 mls/hr DAILY IV 05/21/24 18:15 Cancel Azithromycin 500 mg DAILY PO 05/21/24 19:01 05/24/24 10:32 500 MG Oseltamivir Phosphate 75 mg Q12HR PO 05/22/24 22:00 05/27/24 21:59 05/24/24 10:32 75 MG Midodrine 5 mg BID PO 05/23/24 22:00 05/24/24 10:32 5 MG Sodium Chloride 1,000 ml @ 150 mls/hr Q6H40M IV 05/23/24 15:15 05/24/24 14:47 150 MLS/HR Laboratory Results Laboratory Tests 05/21/24 11:21 05/24/24 08:03 Chemistry Test 05/24/24 08:03 Calcium Level 9.6 mg/dL (8.7-10.4) Magnesium Level 2.1 mg/dL (1.6-2.6) Microbiology Microbiology Date/Time Source Procedure Growth Status 05/21/24 19:00 Blood Blood Culture - Preliminary NO GROWTH AFTER 48 HOURS OF INCUBATION. Resulted Assessment/Plan Assessment/Plan 24-year-old male with a no significant past medical history initially admitted to the hospital with a flu-like symptoms found to have 1. Flu-like symptoms , COVID-19 RULED OUT INFLUENZA A IS POSITIVE currently on Tamiflu 2. Recurrent syncope episodes , ORTHOSTATIC VITALS ARE positive but getting better 3. Febrile episodes ruled out bacteremia -continue Tamiflu, blood cultures are negative -patient is orthostatic vital signs are positive, discussed case with Dr. Perales yesterday on the phone who recommended to start low-dose of midodrine. IV fluids -thigh-high Joshua hose. Patient recommended not to get up without any help and call bedside RN and call light button before he gets up. -discharge plan in next 24 hours if patient continues to improve. Patient's and patient's mom was updated at bedside regarding current plan of care they both agree to the same plan. -dietary consultation. Plan discussed with: Patient, Other (Patient's mom at bedside.) Date of Service: May 24, 2024 Billing Provider: NITISH COLE MD Common Visit Codes: NOT BILLABLE NITISH COLE MD May 24, 2024 16:49
--- NOTE | 2024-05-24 19:53 | DVHPN2 ---
Progress Note - Dictate Date Seen: May 24, 2024 Medical Necessity Reason Pt with a Central, PICC or Fol: No Subjective Patient has stated that his flu-like symptoms are much better. Patient came back positive for orthostatic vital signs. Patient already has thigh-high Kieran hose. vital signs Vital Sign Date Time Temp Pulse Resp B/P (MAP) Pulse Ox O2 Delivery O2 Flow Rate FiO2 05/24/24 17:00 98.1 69 17 121/68 (85) 98 98.1 05/24/24 08:25 Room Air* 0 21 Total Intake and Output 05/23/24 05/23/24 05/24/24 15:00 23:00 07:00 Intake Total 3532 ml 1250 ml Output Total 1050 ml Balance 3532 ml 200 ml medications Current Medications Medications Dose Ordered Sig/Chucky Route Start Time Stop Time Status Last Admin Dose Admin Acetaminophen/ Hydrocodone Bitart 1 tab Q4HP PRN PO 05/21/24 17:00 Ondansetron HCl 4 mg Q4HP PRN IV 05/21/24 17:00 Docusate Sodium 100 mg BIDPRN PRN PO 05/21/24 17:00 Enoxaparin Sodium 40 mg DAILY SC 05/22/24 10:00 05/24/24 10:32 40 MG Acetaminophen 650 mg Q6HP PRN PO 05/21/24 17:00 05/24/24 10:49 650 MG Morphine Sulfate 2 mg Q4HPRN PRN IV 05/21/24 17:00 Nitroglycerin 0.4 mg Q5MINP PRN SL 05/21/24 17:00 Morphine Sulfate 2 mg Q30M PRN IV 05/21/24 17:00 Azithromycin 250 ml @ 125 mls/hr DAILY IV 05/21/24 18:15 Cancel Azithromycin 500 mg DAILY PO 05/21/24 19:01 05/24/24 10:32 500 MG Oseltamivir Phosphate 75 mg Q12HR PO 05/22/24 22:00 05/27/24 21:59 05/24/24 10:32 75 MG Midodrine 5 mg BID PO 05/23/24 22:00 05/24/24 10:32 5 MG Sodium Chloride 1,000 ml @ 150 mls/hr Q6H40M IV 05/23/24 15:15 05/24/24 14:47 150 MLS/HR objective HEENT pupils are reactive Neck is supple CV is S1-S2 regular rate and rhythm Respiratory diminished breath sounds bases GI positive bowel sound Extremity no edema 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 Flu-like symptoms 2. Recurrent syncope episodes. Recommendations 05/21 : influenza A positive Covid : negative dcd Vancomycin , ceftriaxone Continue oseltamivir 75 mg BID for 5 days Gentle IV hydration recommend for tylenol Thigh high kieran hose for orhtostatic hypotension: managed by primary team Thank you for the consultation. Dietary Evaluation Review Comments: Encourage and monitor PO intake to meet 75% of his needs Expected Outcomes/Goals: avoid weight loss. Plan discussed with: Other JOSÉ SIMMONS MD May 24, 2024 19:53
[2024-05-25 01:00] VITALS: BP 105/60; PULSE 74; RESP 19; TEMP 98.2; O2SAT 100
[2024-05-25 05:00] VITALS: BP 110/65; PULSE 58; RESP 20; TEMP 98.4; O2SAT 98
[2024-05-25 07:43] LABS: Basophils # (auto) 0 10 ^3/uL (0-0.2); Basophils % (auto) 0.2 % (0.0-2.0); Eosinophils # (auto) 0.1 10 ^3/uL (0-0.8); Eosinophils % (auto) 1.7 % (0.0-7.0); Hematocrit 37.6 % (41.0-53.0); Hemoglobin 13.2 g/dL (13.5-17.5); Lymphocytes # (auto) 1.6 10 ^3/uL (0.4-5.4); Lymphocytes % (auto) 32.2 % (10.0-50.0); Mean Corpuscular Hemoglobin 30.6 pg (28.0-32.0); Mean Corpuscular Volume 87.3 fL (80.0-100.0); Monocytes # (auto) 0.6 10 ^3/uL (0-1.3); Monocytes % (auto) 13.1 % (0.0-12.0); Neutrophils # (auto) 2.6 10 ^3/uL (1.6-8.6); Neutrophils % (auto) 52.8 % (37.0-80.0); Platelet Count (auto) 198 10^3/uL (140-450); Red Cell Distribution Width 13.1 % (11.8-14.3); White Blood Cell 4.8 10^3/uL (4.4-10.8)
[2024-05-25 08:00] VITALS: PULSE 100; PULSE 83; RESP 17; O2SAT 98
[2024-05-25 08:08] LABS: Anion Gap 9 (5-15); Calcium 9.7 mg/dL (8.7-10.4); Carbon Dioxide 25 mmol/L (20-31); Chloride 107 mmol/L (98-107); Potassium 3.7 mmol/L (3.5-5.1); Sodium 141 mmol/L (136-145)
[2024-05-25 08:14] LABS: BUN/Creatinine Ratio 6.9 (10.0-20.0); Glucose 91 mg/dL (74-106)
[2024-05-25 08:15] LABS: Blood Urea Nitrogen 5 mg/dL (9-23)
[2024-05-25 08:16] LABS: Phosphorus 2.7 mg/dL (2.4-5.1)
[2024-05-25 09:00] VITALS: BP 112/54; PULSE 55; RESP 16; TEMP 98.8; O2SAT 96
[2024-05-25 13:00] VITALS: BP 116/72; PULSE 66; RESP 16; TEMP 96.8; O2SAT 98
[2024-05-25 15:25] VITALS: BP_SYST 113; BP_SYST 116; BP_SYST 120; BP_DIAS 65; BP_DIAS 67; BP_DIAS 68; PULSE 68
[2024-05-25] MEDS ORDERED: MID10T PO (17:20)
[2024-05-25] MEDS ORDERED: TAMIFLU PO (17:21)
--- NOTE | 2024-05-25 17:24 | DVHDS2 ---
Discharge Summary Date of Admission May 21, 2024 at 16:57 Date of Discharge: May 23, 2024 Labs/Diagnostic Data: Laboratory Results Test 05/25/24 06:45 05/22/24 16:56 05/21/24 18:30 05/21/24 17:43 White Blood Count 4.8 10^3/uL (4.4-10.8) Red Blood Count 4.30 10^6/uL (4.5-5.90) Hemoglobin 13.2 g/dL (13.5-17.5) Hematocrit 37.6 % (41.0-53.0) Mean Corpuscular Volume 87.3 fL (80.0-100.0) Mean Corpuscular Hemoglobin 30.6 pg (28.0-32.0) Mean Corpuscular Hemoglobin Concent 35.0 g/dL (32.0-36.0) Red Cell Distribution Width 13.1 % (11.8-14.3) Platelet Count 198 10^3/uL (140-450) Mean Platelet Volume 8.2 fL (6.9-10.8) Neutrophils (%) (Auto) 52.8 % (37.0-80.0) Lymphocytes (%) (Auto) 32.2 % (10.0-50.0) Monocytes (%) (Auto) 13.1 % (0.0-12.0) Eosinophils (%) (Auto) 1.7 % (0.0-7.0) Basophils (%) (Auto) 0.2 % (0.0-2.0) Neutrophils # (Auto) 2.6 10 ^3/uL (1.6-8.6) Lymphocytes # (Auto) 1.6 10 ^3/uL (0.4-5.4) Monocytes # (Auto) 0.6 10 ^3/uL (0-1.3) Eosinophils # (Auto) 0.1 10 ^3/uL (0-0.8) Basophils # (Auto) 0 10 ^3/uL (0-0.2) Nucleated Red Blood Cells 0.0 % Sodium Level 141 mmol/L (136-145) Potassium Level 3.7 mmol/L (3.5-5.1) Chloride Level 107 mmol/L (98-107) Carbon Dioxide Level 25 mmol/L (20-31) Anion Gap 9 (5-15) Blood Urea Nitrogen 5 mg/dL (9-23) Creatinine 0.72 mg/dL (0.700-1.30) Glomerular Filtration Rate Calc 132 mL/min (>90) BUN/Creatinine Ratio 6.9 (10.0-20.0) Serum Glucose 91 mg/dL (74-106) Calcium Level 9.7 mg/dL (8.7-10.4) Phosphorus Level 2.7 mg/dL (2.4-5.1) Magnesium Level 2.0 mg/dL (1.6-2.6) Vancomycin Level Trough 13.3 ug/mL (5-10) Influenza Type A Antigen Positive (Negative) Influenza Type B Antigen Negative (Negative) SARS-CoV-2 Antigen (Rapid) Negative (NEGATIVE) Urine Opiates Screen Neg (NEGATIVE) Urine Fentanyl Screen Neg (NEGATIVE) Urine Barbiturates Screen Neg (NEGATIVE) Urine Phencyclidine Screen Neg (NEGATIVE) Urine Amphetamines Screen Neg (NEGATIVE) Urine Benzodiazepines Screen Neg (NEGATIVE) Urine Cocaine Screen Neg (NEGATIVE) Urine Cannabinoids Screen Neg (NEGATIVE) Test 05/21/24 14:21 Troponin I High Sensitivity 4 ng/L (</=54) Other Laboratory Tests 05/25/24 06:45 Brief Hx & Hospital Course: 24-year-old male with a no significant past medical history initially admitted to the hospital with a flu-like symptoms found to have influenza A positive. Patient is still complaining of fever episodes as well as passing out spell. Patient was found to have orthostatic hypotension. Patient was given aggressive IV hydration. Midodrine low dose was started as per Cardiology recommendations. Patient was given Tamiflu as well as placed on contact isolation. Patient is being discharged under stable condition with thigh-high Joshua hose as well as midodrine for orthostatic hypotension. Patient was recommended to follow up with the PCP as well as Cardiology Dr. Perales in one week to two weeks. Condition at Discharge: Stable Final Diagnosis/Problems List 1. Flu-like symptoms , COVID-19 RULED OUT INFLUENZA A IS POSITIVE, Tamiflu for home 2. Recurrent syncope episodes , ORTHOSTATIC VITALS positive , improved 3. Febrile episodes ruled out bacteremia Discharge Disposition: Home SNF Discharge Will this Physician continue t: No Discharge Instruct/Medications Diet: Regular Activity: See Comment Activity comment: DROPLET ISOLATION MENTIONED ABOVE, per protocol total of five days after afebrile. Follow Up/Referral: F/U WITH PRIMARY IN 2 WEEKS Follow up with Dr. Perales, gambling box person in one week Medications: TAMIFLU, four more doses, midodrine for two weeks Discharge Statement: "Patient was advised to return to the ER or call 911 if any headaches, dizziness, shortness of breath, chest pain, abdominal pain, bleeding, fevers, or worsening of medical condition. Patient was counseled about treatment plan, medications, possible side effects, patientverbalized understanding. All questions were answered to the best of my ability. This discharge took greater then 30 minutes in planning, reviewing documentation, counseling the patient, and discussing with other team members." ASSESSMENT ASSESSMENT Assessment 24-year-old male with a no significant past medical history initially admitted to the hospital with a flu-like symptoms found to have 1. Flu-like symptoms , COVID-19 RULED OUT INFLUENZA A IS POSITIVE, Tamiflu for home 2. Recurrent syncope episodes , ORTHOSTATIC VITALS ARE positive , improved 3. Febrile episodes ruled out bacteremia Date of Service: May 23, 2024 Billing Provider: NITISH COLE MD Common Visit Codes: NOT BILLABLE NITISH COLE MD May 25, 2024 17:24
--- NOTE | 2024-05-25 17:36 | DVHPN2 ---
Progress Note - Dictate Date Seen: May 25, 2024 Medical Necessity Reason Pt with a Central, PICC or Fol: No Subjective Patient has stated that his flu-like symptoms are much better.no new complaints vital signs Vital Sign Date Time Temp Pulse Resp B/P (MAP) Pulse Ox O2 Delivery O2 Flow Rate FiO2 05/25/24 15:25 120/67 (84) 113/65 (81) 116/68 (84) 05/25/24 15:25 68 05/25/24 13:00 96.8 16 98 96.8 05/25/24 08:00 Room Air* 0 21 Total Intake and Output 05/24/24 05/24/24 05/25/24 15:00 23:00 07:00 Intake Total 1000 ml 1298 ml 1730 ml Output Total 800 ml Balance 1000 ml 1298 ml 930 ml medications Current Medications Medications Dose Ordered Sig/Chucky Route Start Time Stop Time Status Last Admin Dose Admin Acetaminophen/ Hydrocodone Bitart 1 tab Q4HP PRN PO 05/21/24 17:00 Ondansetron HCl 4 mg Q4HP PRN IV 05/21/24 17:00 Docusate Sodium 100 mg BIDPRN PRN PO 05/21/24 17:00 Enoxaparin Sodium 40 mg DAILY SC 05/22/24 10:00 05/25/24 10:20 40 MG Acetaminophen 650 mg Q6HP PRN PO 05/21/24 17:00 05/25/24 12:09 650 MG Morphine Sulfate 2 mg Q4HPRN PRN IV 05/21/24 17:00 Nitroglycerin 0.4 mg Q5MINP PRN SL 05/21/24 17:00 Morphine Sulfate 2 mg Q30M PRN IV 05/21/24 17:00 Azithromycin 250 ml @ 125 mls/hr DAILY IV 05/21/24 18:15 Cancel Azithromycin 500 mg DAILY PO 05/21/24 19:01 05/25/24 10:20 500 MG Oseltamivir Phosphate 75 mg Q12HR PO 05/22/24 22:00 05/27/24 21:59 05/25/24 10:20 75 MG Midodrine 5 mg BID PO 05/23/24 22:00 05/25/24 10:20 5 MG Sodium Chloride 1,000 ml @ 150 mls/hr Q6H40M IV 05/23/24 15:15 05/25/24 13:55 150 MLS/HR objective HEENT pupils are reactive Neck is supple CV is S1-S2 regular rate and rhythm Respiratory diminished breath sounds bases GI positive bowel sound Extremity no edema [employer] no motor deficit laboratory and microbiology Laboratory Tests 05/25/24 06:45 Test 05/25/24 06:45 Range/Units Serum Glucose 91 74-106 mg/dL Assessment/Plan Assessment 24-year-old male with a no significant past medical history initially admitted to the hospital with a flu-like symptoms found to have 1. Flu-like symptoms 2. Recurrent syncope episodes. 3. orthostatic hypotension Recommendations 05/21 : influenza A positive Covid : negative complete oseltamivir 75 mg BID for 5 days continue oral hydration Thigh high kieran hose for orhtostatic hypotension: managed by primary team follow up with PCP as outpt Thank you for the consultation. Dietary Evaluation Review Comments: Encourage and monitor PO intake to meet 75% of his needs Expected Outcomes/Goals: avoid weight loss. Plan discussed with: Other JOSÉ SIMMONS MD May 25, 2024 17:35
== END 2024-05-25 21:30 | disposition home or self-care (01) | DRG 204 ==
LOC: ER 10:44 → EDBD 10:44 → TELE 16:57 → WEST WING 23:10 → TELE-WESTW 05-22 01:41
PROVIDERS: ADMIT Internal Medicine; ATTEND Internal Medicine
DX: I95.1 Orthostatic hypotension (principal); E87.6 Hypokalemia; Z20.822 Contact with and (suspected) exposure to COVID-19; J10.1 Influenza due to other identified influenza virus with other respiratory manifestations; Z79.899 Other long term (current) drug therapy
CPT/HCPCS: 36415; 70450; 71046; 80048; 80202; 80307; 83735; 84100; 84132; 84484; 85025; 87040; 87426; 87804; 93005; 93306; 96360; 99291; G0378